=== PATIENT | male | born 1975 | race Two or more races ===

== ENCOUNTER 2021-10-14 07:37 | Inpatient (IN) | payer OTHER ==
[~2021-10-14] VITALS: Ht 175.3 cm; Wt 195.0 kg
[2021-10-14 08:48] LABS: Basophils # (auto) 0.1 10 ^3/uL (0-0.2); Basophils % (auto) 1.3 % (0.0-2.0); Eosinophils # (auto) 0.3 10 ^3/uL (0-0.8); Hematocrit 48.5 % (41.0-53.0); Hemoglobin 16.6 g/dL (13.5-17.5); Lymphocytes # (auto) 1.8 10 ^3/uL (0.4-5.4); Lymphocytes % (auto) 23.9 % (10.0-50.0); Mean Corpuscular Hemoglobin 30.3 pg (28.0-32.0); Mean Corpuscular Hgb Conc. 34.1 g/dL (32.0-36.0); Mean Corpuscular Volume 88.7 fL (80.0-100.0); Monocytes # (auto) 0.7 10 ^3/uL (0-1.3); Neutrophils # (auto) 4.6 10 ^3/uL (1.6-8.6); Neutrophils % (auto) 61.8 % (37.0-80.0); Nucleated Red Blood Cells % 0.1 %; Red Blood Cells 5.47 10^6/uL (4.5-5.90); Red Cell Distribution Width 15.7 % (11.8-14.3); White Blood Cell 7.4 10^3/uL (4.4-10.8)
[2021-10-14 09:06] LABS: Albumin 2.9 g/dL (3.4-5.0); Calcium 7.9 mg/dL (8.5-10.1); Potassium 4.9 mmol/L (3.5-5.1)
[2021-10-14 09:09] LABS: BUN/Creatinine Ratio 8.5; Bilirubin, Total 0.5 mg/dL (0.2-1.0); Total Protein 7.9 g/dL (6.4-8.2)
[2021-10-14] MEDS ORDERED: MORPHINE SULFATE INJ 2 MG/ml SYRG IV PRN ×3 (10:45→12:00)
[2021-10-14] MEDS ORDERED: ONDANSETRON HCL 4 MG/2 ML VIAL IV PRN ×2 (10:45→12:00)
[2021-10-14] MEDS ORDERED: NITROGLYCERIN 0.4 MG SL TAB SL PRN (10:45)
[2021-10-14 10:52] LABS: Urine Bacteria NONE SEEN /hpf (None Seen); Urine Blood 2+ /uL (Negative); Urine Mucus FEW (None Seen); Urine Specific Gravity 1.012 (1.001-1.035); Urine WBC 228 /hpf (0 - 3); Urine WBC Clumps PRESENT /hpf (None Seen)
[2021-10-14 11:05] LABS: Alcohol, Urine < 3.0 mg/dL (0-10); Amphetamine Screen, Urine NEGATIVE (NEGATIVE); Barbiturate Scree,Urine NEGATIVE (NEGATIVE); Benzodiazephine Screen, Urine NEGATIVE (NEGATIVE); Cannabinoid Screen, Urine NEGATIVE (NEGATIVE); Cocaine Screen, Urine NEGATIVE (NEGATIVE); Opiate Scree,Urine NEGATIVE (NEGATIVE); Phencyclidine Screen, Urine NEGATIVE (NEGATIVE)
[2021-10-14] MEDS ORDERED: cefTRIAXone 1GM/50ML D5W 50 ML IV ONE (12:00)
[2021-10-14] MEDS ORDERED: ATORVASTATIN 20 MG TAB PO ONE (12:00)
[2021-10-14] MEDS ORDERED: METOPROLOL SUCCINATE XL 50 MG TAB PO ONE (12:00)
[2021-10-14] MEDS ORDERED: ACETAMINOPHEN 325 MG TAB PO PRN (12:00)
[2021-10-14] MEDS ORDERED: ASPirin 81 mg TAB PO ONE ×2 (12:00)
[2021-10-14] MEDS ORDERED: DOCUSATE SOD 100 MG CAP PO PRN (12:00)
[2021-10-14] MEDS ORDERED: BENAZEPRIL HCL 10 MG TAB PO ONE (12:00)
[2021-10-14] MEDS ORDERED: hydrALAZINE HCL 20 MG/ML VL IV PRN ×2 (12:00→15:15)
[2021-10-14] MEDS ORDERED: LORazepam 0.5 MG TAB PO PRN (12:00)
[2021-10-14] MEDS ORDERED: BUMETANIDE 2.5mg/10ml (0.25 mg/ml) INJ IV ONE (12:00)
[2021-10-14] MEDS ORDERED: ENOXAPARIN SOD 40 MG/0.4 ML SYRINGE SC ONE (12:00)
[2021-10-14] MEDS ORDERED: LABETALOL HCL 5 MG/ML 4ML SYRINGE IV PRN (12:00)
[2021-10-14] MEDS ORDERED: AZITHROMYCIN 500MG/ 250ML 250 ML IV ONE (12:30)
[2021-10-14 12:42] LABS: Magnesium 2.1 mg/dL (1.6-2.6); Phosphorus 2.4 mg/dL (2.5-4.90)
[2021-10-14] MEDS: HYDROcodone-ACET 5/325MG TAB PO PRN ×2 (12:46→20:36)
[2021-10-14 12:50] LABS: INR 1.02 (0.9-1.15); Partial Thromboplastin Time 32.2 sec (23.6-33.0)
[2021-10-14 16:00] VITALS: BP 141/78
[2021-10-14] MEDS ORDERED: BUMETANIDE 2.5mg/10ml (0.25 mg/ml) INJ IV SCH (18:00)
[2021-10-14] MEDS ORDERED: CARVEDILOL 12.5 MG TAB PO SCH (22:00)
[2021-10-14] MEDS ORDERED: POTASSIUM CHL 20 Meq TABLET PO SCH (22:00)
[2021-10-14] MEDS ORDERED: ATORVASTATIN 20 MG TAB PO SCH ×2 (22:00)
[2021-10-15] MEDS ORDERED: cefTRIAXone 1GM/50ML D5W 50 ML IV SCH (09:00)
[2021-10-15] MEDS ORDERED: ASPirin 81 mg TAB PO SCH (10:00)
[2021-10-15] MEDS ORDERED: AZITHROMYCIN 500MG/ 250ML 250 ML IV SCH (10:00)
[2021-10-15] MEDS ORDERED: BENAZEPRIL HCL 10 MG TAB PO SCH (10:00)
[2021-10-15] MEDS ORDERED: METOPROLOL SUCCINATE XL 50 MG TAB PO SCH (10:00)
[2021-10-15] MEDS ORDERED: ENOXAPARIN SOD 40 MG/0.4 ML SYRINGE SC SCH ×2 (10:00)
[2021-10-15] MEDS ORDERED: FAMOTIDINE (10MG/ML) 2ML VL IV SCH (10:00)
== END 2021-10-14 21:35 | disposition left against medical advice (07) | DRG 139 ==
LOC: ER 07:37 → TELE 10:43 → TELE-EAST 18:05
PROVIDERS: ADMIT Hospitalist; ATTEND Hospitalist
DX: J18.9 Pneumonia, unspecified organism (principal); J96.01 Acute respiratory failure with hypoxia; I21.A1 Myocardial infarction type 2; I50.41 Acute combined systolic (congestive) and diastolic (congestive) heart failure; I42.7 Cardiomyopathy due to drug and external agent; Z68.44 Body mass index [BMI] 60.0-69.9, adult; I11.0 Hypertensive heart disease with heart failure; Z86.74 Personal history of sudden cardiac arrest; Z20.822 Contact with and (suspected) exposure to COVID-19; E66.01 Morbid (severe) obesity due to excess calories; Z53.29 Procedure and treatment not carried out because of patient's decision for other reasons; E78.5 Hyperlipidemia, unspecified; F15.90 Other stimulant use, unspecified, uncomplicated; G47.33 Obstructive sleep apnea (adult) (pediatric); G89.29 Other chronic pain; I16.0 Hypertensive urgency; I45.2 Bifascicular block; N39.0 Urinary tract infection, site not specified; Z86.73 Personal history of transient ischemic attack (TIA), and cerebral infarction without residual deficits; Z91.19 Patient's noncompliance with other medical treatment and regimen
CPT/HCPCS: 36415; 70450; 71045; 80053; 80307; 81001; 83735; 83880; 84100; 84439; 84484; 85025; 85379; 85610; 85730; 87040; 87086; 93005; 93306; 93886; 96365; 96372; G0378; J0696

== ENCOUNTER 2021-10-25 03:53 | Inpatient (IN) | payer OTHER ==
[~2021-10-25] VITALS: Ht 175.3 cm; Wt 183.1 kg
[2021-10-25 06:14] LABS: Basophils # (auto) 0.2 10 ^3/uL (0-0.2); Eosinophils # (auto) 0.3 10 ^3/uL (0-0.8); Eosinophils % (auto) 3.3 % (0.0-7.0); Hematocrit 47.7 % (41.0-53.0); Lymphocytes # (auto) 1.9 10 ^3/uL (0.4-5.4); Lymphocytes % (auto) 23.3 % (10.0-50.0); Mean Corpuscular Hemoglobin 28.3 pg (28.0-32.0); Mean Corpuscular Hgb Conc. 31.4 g/dL (32.0-36.0); Mean Corpuscular Volume 90.1 fL (80.0-100.0); Monocytes # (auto) 0.7 10 ^3/uL (0-1.3); Neutrophils # (auto) 5.2 10 ^3/uL (1.6-8.6); Neutrophils % (auto) 63.4 % (37.0-80.0); Nucleated Red Blood Cells % 0.2 %; Red Cell Distribution Width 16.1 % (11.8-14.3); White Blood Cell 8.2 10^3/uL (4.4-10.8)
[2021-10-25 06:29] LABS: BUN/Creatinine Ratio 15.8; Potassium 3.9 mmol/L (3.5-5.1)
[2021-10-25 06:30] LABS: Albumin 3.2 g/dL (3.4-5.0); Calcium 8.6 mg/dL (8.5-10.1)
[2021-10-25 06:33] LABS: Bilirubin, Total 0.5 mg/dL (0.2-1.0); Total Protein 7.4 g/dL (6.4-8.2)
[2021-10-25] MEDS: cloNIDine HCL 0.1 MG TAB PO ONE ×2 (08:30→13:52)
[2021-10-25] MEDS ORDERED: FUROSEMIDE 40 MG/4 ML VIAL IV ONE (08:30)
[2021-10-25] MEDS ORDERED: SPIRONOLACTONE 25 MG TAB PO ONE (08:30)
[2021-10-25] MEDS ORDERED: HYDROcodone-ACET 5/325MG TAB PO ONE (12:45)
[2021-10-25] MEDS ORDERED: ACETAMINOPHEN 325 MG TAB PO PRN (17:15)
[2021-10-25] MEDS ORDERED: ONDANSETRON HCL 4 MG/2 ML VIAL IV PRN (17:15)
[2021-10-25] MEDS ORDERED: MORPHINE SULFATE INJ 2 MG/ml SYRG IV PRN (17:15)
[2021-10-25] MEDS ORDERED: LISINOPRIL 5 MG TAB PO ONE (17:15)
[2021-10-25] MEDS ORDERED: DEXTROSE (50%) 50ML SYRG IV PRN (17:15)
[2021-10-25] MEDS ORDERED: DOCUSATE SOD 100 MG CAP PO PRN (17:15)
[2021-10-25] MEDS ORDERED: NITROGLYCERIN 0.4 MG SL TAB SL PRN (17:15)
[2021-10-25] MEDS: HYDROcodone-ACET 5/325MG TAB PO PRN (18:27)
[2021-10-25] MEDS: FUROSEMIDE 40 MG/4 ML VIAL IV SCH (18:27)
[2021-10-25 22:00] VITALS: BP 199/95
[2021-10-25] MEDS: ACCU-CHEK COMFORT CURVE STRIP VI SCH (22:20)
[2021-10-25] MEDS: METOPROLOL TARTRATE 25 MG TAB PO SCH (22:21)
[2021-10-25] MEDS: InsuLIN REG 1unit/0.01ml Soln (100units/ml) SC SCH (22:21)
[2021-10-25] MEDS ORDERED: ASPI-325 PO (22:39)
[2021-10-25] MEDS ORDERED: METO-159 PO (22:39)
[2021-10-25] MEDS ORDERED: NAP500T PO (22:39)
[2021-10-26] MEDS: HYDROcodone-ACET 5/325MG TAB PO PRN ×2 (00:33→20:36)
[2021-10-26 05:00] VITALS: BP 180/84
[2021-10-26] MEDS: ACCU-CHEK COMFORT CURVE STRIP VI SCH ×2 (06:47→11:32)
[2021-10-26] MEDS: InsuLIN REG 1unit/0.01ml Soln (100units/ml) SC SCH ×2 (06:47→11:33)
[2021-10-26] MEDS: FUROSEMIDE 40 MG/4 ML VIAL IV SCH ×2 (06:47→16:49)
[2021-10-26] MEDS ORDERED: hydrALAZINE HCL 20 MG/ML VL IV PRN (07:15)
[2021-10-26] MEDS: METOPROLOL TARTRATE 25 MG TAB PO SCH ×2 (08:26→22:15)
[2021-10-26 09:00] VITALS: BP 103/51
[2021-10-26 13:00] VITALS: BP 144/89
[2021-10-26 16:58] VITALS: BP 165/87
[2021-10-26 17:30] VITALS: BP 145/92
[2021-10-26 22:00] VITALS: BP 158/75
[2021-10-27 05:00] VITALS: BP 185/89
[2021-10-27] MEDS: FUROSEMIDE 40 MG/4 ML VIAL IV SCH ×2 (06:02→17:02)
[2021-10-27 09:00] VITALS: BP 144/68
[2021-10-27] MEDS: METOPROLOL TARTRATE 25 MG TAB PO SCH ×2 (09:03→21:52)
[2021-10-27] MEDS ORDERED: ENOXAPARIN SOD 40 MG/0.4 ML SYRINGE SC ONE (11:15)
[2021-10-27] MEDS ORDERED: ASPirin 81 mg TAB PO ONE (11:15)
[2021-10-27] MEDS ORDERED: SACUBITRIL-VALSARTAN 24mg/26mg TAB PO ONE (11:15)
[2021-10-27 12:26] LABS: Cholesterol 172 mg/dL (< 200); HDL Cholesterol 64 mg/dL (40-59); LDL Cholesterol 101 mg/dL (< 100); Triglycerides 115 mg/dL (< 150)
[2021-10-27 13:00] VITALS: BP 158/75
[2021-10-27] MEDS ORDERED: ALBUTEROL SULF 2.5 MG/0.5ML(0.5%) NEB SOLN NEB PRN (14:00)
[2021-10-27] MEDS ORDERED: IPRATROPIUM BROM 0.5 MG/2.5ML INH SOL NEB PRN (14:00)
[2021-10-27 16:50] VITALS: BP 118/64
[2021-10-27] MEDS ORDERED: TEMAZEPAM 15 MG CAP PO PRN (17:15)
[2021-10-27 20:49] VITALS: BP 118/64
[2021-10-27] MEDS: SACUBITRIL-VALSARTAN 24mg/26mg TAB PO SCH (21:53)
[2021-10-27 22:00] VITALS: BP 152/85
[2021-10-28 05:00] VITALS: BP 179/94
[2021-10-28] MEDS: FUROSEMIDE 40 MG/4 ML VIAL IV SCH (05:37)
[2021-10-28 06:29] LABS: Alcohol, Urine < 3.0 mg/dL (0-10); Amphetamine Screen, Urine NEGATIVE (NEGATIVE); Barbiturate Scree,Urine NEGATIVE (NEGATIVE); Benzodiazephine Screen, Urine NEGATIVE (NEGATIVE); Cannabinoid Screen, Urine NEGATIVE (NEGATIVE); Cocaine Screen, Urine NEGATIVE (NEGATIVE); Opiate Scree,Urine NEGATIVE (NEGATIVE); Phencyclidine Screen, Urine NEGATIVE (NEGATIVE)
[2021-10-28 08:00] VITALS: BP 165/87
[2021-10-28 09:00] VITALS: BP 129/66
[2021-10-28 09:41] LABS: Basophils # (auto) 0.1 10 ^3/uL (0-0.2); Basophils % (auto) 1.1 % (0.0-2.0); Eosinophils # (auto) 0.2 10 ^3/uL (0-0.8); Eosinophils % (auto) 2.8 % (0.0-7.0); Hematocrit 49.8 % (41.0-53.0); Hemoglobin 15.4 g/dL (13.5-17.5); Lymphocytes # (auto) 1.4 10 ^3/uL (0.4-5.4); Lymphocytes % (auto) 19.1 % (10.0-50.0); Mean Corpuscular Hemoglobin 28.2 pg (28.0-32.0); Mean Corpuscular Volume 90.7 fL (80.0-100.0); Monocytes # (auto) 0.5 10 ^3/uL (0-1.3); Monocytes % (auto) 6.4 % (0.0-12.0); Neutrophils % (auto) 70.6 % (37.0-80.0); Nucleated Red Blood Cells % 0.1 %; Red Blood Cells 5.48 10^6/uL (4.5-5.90); Red Cell Distribution Width 16.8 % (11.8-14.3); White Blood Cell 7.1 10^3/uL (4.4-10.8)
[2021-10-28 09:58] LABS: Calcium 8.5 mg/dL (8.5-10.1); Potassium 3.9 mmol/L (3.5-5.1)
[2021-10-28] MEDS ORDERED: ASPirin 81 mg TAB PO SCH (10:00)
[2021-10-28] MEDS ORDERED: ENOXAPARIN SOD 40 MG/0.4 ML SYRINGE SC SCH (10:00)
[2021-10-28] MEDS: SACUBITRIL-VALSARTAN 24mg/26mg TAB PO SCH (11:17)
[2021-10-28] MEDS: METOPROLOL TARTRATE 25 MG TAB PO SCH (11:17)
[2021-10-28] MEDS ORDERED: SACU1TAB PO (11:57)
[2021-10-28] MEDS ORDERED: ALBUAER3 IN (11:57)
[2021-10-28] MEDS ORDERED: MET25T PO (11:57)
[2021-10-28] MEDS ORDERED: FURO1TAB31 PO (11:57)
[2021-10-28 13:00] VITALS: BP 165/87
[2021-10-28 15:58] VITALS: BP 148/88
[2021-10-28 16:55] VITALS: BP 152/76
== END 2021-10-28 18:37 | disposition home or self-care (01) | DRG 194 ==
LOC: ER 03:53 → TELE-WESTW 17:15
PROVIDERS: ADMIT Internal Medicine; ATTEND Internal Medicine
DX: I11.0 Hypertensive heart disease with heart failure (principal); I42.7 Cardiomyopathy due to drug and external agent; Z86.74 Personal history of sudden cardiac arrest; Z68.43 Body mass index [BMI] 50.0-59.9, adult; I16.0 Hypertensive urgency; I50.43 Acute on chronic combined systolic (congestive) and diastolic (congestive) heart failure; R09.89 Other specified symptoms and signs involving the circulatory and respiratory systems; E66.01 Morbid (severe) obesity due to excess calories; F15.90 Other stimulant use, unspecified, uncomplicated; F17.200 Nicotine dependence, unspecified, uncomplicated; E78.5 Hyperlipidemia, unspecified; R73.03 Prediabetes; G47.33 Obstructive sleep apnea (adult) (pediatric); J44.9 Chronic obstructive pulmonary disease, unspecified; Z71.6 Tobacco abuse counseling; Z91.19 Patient's noncompliance with other medical treatment and regimen; I25.2 Old myocardial infarction; Z20.822 Contact with and (suspected) exposure to COVID-19
CPT/HCPCS: 36415; 71045; 80048; 80053; 80061; 80307; 83036; 83735; 83880; 84443; 84484; 85025; 93005; 96374; G0378; J1815